=== PATIENT | male | born 1960 | race Asian ===

== ENCOUNTER → 2019-10-02 | Outpatient (CLI) | payer BC ==
--- NOTE | 2019-10-02 09:53 | Diagnostic Imaging Report ---
EXAMINATION: THORACIC SPINE 2VW, CERVICAL SPINE 4 OR 5 VIEWS INDICATION: Back pain, neck pain, osteoarthritis COMPARISON: None FINDINGS: Cervical spine: There is straightening of the normal cervical lordosis. No acute fracture or dislocation. Moderate multilevel degenerative changes with disc space narrowing and osteophyte formation. Oblique views demonstrate multilevel foraminal narrowing. The prevertebral soft tissues are normal in thickness. Thoracic spine: No acute fracture or dislocation. Vertebral body heights are well-maintained. Minimal multilevel degenerative changes. IMPRESSION: No acute osseous injury. Multilevel degenerative changes, moderate in the cervical spine and mild in the thoracic spine. Signed by: Geoffrey Alaniz MD on 10/02/2019 9:50 AM
== END ==
LOC: RAD 08:43
PROVIDERS: ATTEND Family Medicine
DX: I10 Essential (primary) hypertension (principal); M15.0 Primary generalized (osteo)arthritis; M50.13 Cervical disc disorder with radiculopathy, cervicothoracic region; M51.34 Other intervertebral disc degeneration, thoracic region
CPT/HCPCS: 72050; 72070